=== PATIENT | female | born 1970 | race Caucasian/White ===

== ENCOUNTER 2016-05-14 18:19 | Emergency (ER) | payer MEDICAID ==
[2016-05-14] MEDS ORDERED: LORazepam 2 MG/ML INJ IVP ONE (18:30)
--- NOTE | 2016-05-14 18:39 | EDPHY ---
H & P HPI/ROS: HPI CHIEF COMPLAINT: Anxiety, panic attack HISTORY OF PRESENT ILLNESS: This patient very pleasant 45-year-old female she does have significant past medical history for CHF, COPD wears intermittent oxygen, anxiety, presents emergency room by EMS after she was discharged from [facility] in [place] this morning she waited 3 hours for medicate taxi cab medicated taxi cab took her to the homeless [facility] here in [place]. When she arrived at the homeless penitentiary they unfortunately said they were full and could not take her in. She tells me she had acute onset of panic attack called 911 for acute anxiety and presents to the emergency room. the patient denies chest pain. She tells me she got very anxious and upset after she was turned away from the homeless penitentiary called 911 and that is why she arrived here. She is declining any evaluation for cardiac evaluation or chest pain. She is agreeable for IV Ativan for anxiety an EKG due to tachycardia. She does not want any blood work or x-ray done. Past Medical History: COPD, on intermittent oxygen, CHF, inappropriate tachycardia takes metoprolol Past Surgical History: Mitral valve replacement Social History: daily tobacco use, denies illicit drugs or alcohol, homeless Family History: noncontributory ROS REVIEW OF SYSTEMS: A comprehensive 10 point review of systems is otherwise negative aside from elements mentioned in the history of present illness. Exam Constitutional appears well nontoxic, anxious, triage nursing summary reviewed , vital signs reviewed, awake/alert. Eyes normal conjunctivae and sclera, EOMI, PERRLA. HENT normal inspection, atraumatic, moist mucus membranes, no epistaxis, neck supple/ no meningismus, no raccoon eyes. Respiratory clear to auscultation bilaterally, normal breath sounds, no respiratory distress, no wheezing. Cardiovascular tachycardic , regular rhythm, no murmur, no edema, distal pulses normal. Gastrointestinal soft, non-tender, no rebound, no guarding, normal bowel sounds, no distension, no pulsatile mass. Genitourinary no CVA tenderness. Musculoskeletal no midline vertebral tenderness, full range of motion, no calf swelling, no tenderness of extremities, no meningismus, good pulses, neurovascularly intact. Skin pink, warm, & dry, no rash, skin atraumatic. Neurologic awake, alert and oriented x 3, AAOx3, moves all 4 extremities equally, motor intact, sensory intact, CN II-XII intact, normal cerebellar, normal vision, normal speech. Psychiatric anxious Heme/Lymph/Immune no lymphadenopathy. Differential Diagnosis: includes but is not limited to in a particular order acute anxiety, panic attack, inappropriate tachycardia Medical Decision Making: Patient had an IV established, patient be given IV Ativan for acute anxiety will obtain EKG due to tachycardia however patient has declined any further workup. She would like something to eat. She would like case management to be with her about resources for where she can go tonight. Re-evaluation: EKG interpretation by me on record in [facility] system. Impression time of EKG 1827: Sinus tachycardia rate of 117 left atrial abnormality, LVH present, otherwise I do not appreciate acute ischemic changes specifically no ST elevation, ST depression or significant abnormal T-wave abnormality. 1923: Re-evaluation this time this patient is resting comfortably case management with her she would like a cab voucher to go to the local [facility]. She did receive IV Ativan here and feels much better. Heart rate did come down from the 130s to 109. This is where she tells me she normally runs. She is comfortable with discharge. Source: Patient, EMS Constitutional: Initial Vital Signs Temperature (C) 36.9 C 05/14/16 19:00 Heart Rate 130 H 05/14/16 19:00 Respiratory Rate 16 05/14/16 19:00 Blood Pressure 116/92 H 05/14/16 19:00 O2 Sat (%) 92 05/14/16 19:00 O2 Delivery Mode Room Air Medical Decision Making - Data Points Medications Given: Discontinued Medications Lorazepam (Ativan Injection) 1 mg IVP EDNOW ONE Stop: 05/14/16 18:31 Last Admin: 05/14/16 18:49 Dose: 1 mg Departure - Departure Disposition: Home, Routine, Self-Care Clinical Impression: Acute anxiety Condition: Good Instructions: Anxiety (ED) Additional Instructions: 1. stay well-hydrated drink lots of fluids 2. return to the emergency room if he develops any worsening symptoms questions or concerns.
--- NOTE | 2016-05-14 18:40 | CPEKG ---
Heart Rate: 117 RR Interval: 513 P-R Interval: 148 QRSD Interval: 86 QT Interval: 328 QTC Interval: 458 P [place]: 58 QRS [place]: 13 T Wave [place]: 106 EKG Severity - ABNORMAL ECG - EKG Impression: SINUS TACHYCARDIA EKG Impression: PROBABLE LEFT ATRIAL ABNORMALITY EKG Impression: LEFT VENTRICULAR HYPERTROPHY Electronically Signed By: Edis Rodriguez 15-May-2016 22:48:59
[2016-05-14 19:13] VITALS: TEMP 98.4
[2016-05-14] MEDS ORDERED: ACETAMINOPHEN 500 MG TAB ONE (19:42)
[2016-05-14] MEDS ORDERED: ACETAMINOPHEN 500 MG TAB PO ONE (19:45)
[2016-05-14 19:53] VITALS: BP 105/79; PULSE 120; RESP 20; O2SAT 95
== END 2016-05-14 19:49 | disposition home or self-care (01) ==
DX: F41.9 Anxiety disorder, unspecified (principal); I50.9 Heart failure, unspecified
CPT/HCPCS: 96374

== ENCOUNTER 2016-05-15 21:07 | Emergency (ER) | payer MEDICAID ==
--- NOTE | 2016-05-15 21:18 | CPEKG ---
Heart Rate: 93 RR Interval: 645 P-R Interval: 128 QRSD Interval: 88 QT Interval: 372 QTC Interval: 463 P [place]: 30 QRS [place]: 37 T Wave [place]: 96 EKG Severity - ABNORMAL ECG - EKG Impression: SINUS RHYTHM EKG Impression: PROBABLE LVH WITH SECONDARY REPOL ABNRM Electronically Signed By: Edis Rodriguez 15-May-2016 22:48:59
[2016-05-15 21:50] LABS: FRAGMENT RBC FLAG 40 (0-99); HEMATOCRIT 37.6 % (38.0-47.0); HEMOGLOBIN 11.5 g/dL (12.6-16.3); LEFT SHIFT FLG 0 (0-99); LIPEMIA HEMOLYSIS FLAG 80 (0-99); MEAN CELL HEMOGLOBIN 24.8 pg (27.9-34.1); MEAN CELL HEMOGLOBIN CONCENTR. 30.6 g/dL (32.4-36.7); MEAN PLATELET VOLUME 11.1 fL (8.7-11.7); PLATELET CLUMPS FLAG 0 (0-99); PLATELET COUNT 225 10^3/uL (150-400); RED BLOOD CELL COUNT 4.64 10^6/uL (4.18-5.33)
[2016-05-15 21:51] LABS: ADD DIFF? YES; ADD MORPH? NO; ADD SCAN? NO; ANION GAP 12 mEq/L (8-16); ATYPICAL LYMPHOCYTE FLAG 110 (0-99); CALCIUM 8.7 mg/dL (8.5-10.4); CARBON DIOXIDE 25 mEq/l (22-31); CHLORIDE 104 mEq/L (97-110); GLOMERULAR FILTRATION RATE 60; GLUCOSE 102 mg/dL (70-100); RED CELL DISTRIBUTION WIDTH 21.6 % (11.5-15.2); SODIUM 141 mEq/L (134-144)
[2016-05-15 22:00] LABS: TROPONIN I 0.032 ng/mL (0-0.034)
--- NOTE | 2016-05-15 22:12 | EDPHY ---
H & P Stated Complaint: CP-pt recent visit here and at [facility] - Personal History LMP (Females 10-55): Post Menopausal Current Tetanus Diphtheria and Acellular Pertussis (TDAP): Yes Tetanus Vaccine Date: 2014 - Medical/Surgical History Hx Asthma: No Hx Chronic Respiratory Disease: Yes Hx Diabetes: No Hx Cardiac Disease: Yes Hx Renal Disease: No Hx Cirrhosis: No Hx Alcoholism: No Hx HIV/AIDS: No Hx Splenectomy or Spleen Trauma: No Other PMH: COPD, CHF, TBI, mitral valve replacement - Social History Smoking Status: Current every day smoker HPI/ROS: Chief complaint: Chest pain History of present illness: This is a 45-year-old female who presents to the emergency department with EMS for evaluation and treatment of chest pain. Patient reports the onset of symptoms earlier this evening. She describes pain throughout the chest. She denies precipitating factors. She denies alleviating factors. She was seen last night for similar, however she refused an evaluation and wanted only be treated for anxiety. She states the day before she had been released from [facility] where she was admitted for a number of weeks for evaluation of her heart. She states she has been told she needs to have her heart valves replaced. She reports she was discharged from the [place] and asked to go to [place] as she "would get better care there". Review of systems: A 10 point review of systems was obtained and other than described above was negative (Ernesto Marquez) - Physical Exam Exam: General Appearance: Alert, nontoxic. Eyes: Pupils equal and round no pallor or injection. ENT, Mouth: Mucous membranes moist. Respiratory: There are no retractions, lungs are clear to auscultation. Cardiovascular: Regular rate and rhythm. Gastrointestinal: Abdomen is soft and nontender, no masses, bowel sounds normal. Neurological: Alert and oriented. Strength and sensation intact and symmetrical. Skin: Warm and dry, no rashes. Musculoskeletal: Neck is supple nontender. Extremities are symmetrical, full range of motion. Psychiatric: Patient is oriented X 3, there is no agitation. (Ernesto Marquez) Constitutional: Initial Vital Signs Temperature (C) 36.6 C 05/15/16 21:19 Heart Rate 66 05/15/16 21:19 Respiratory Rate 16 05/15/16 21:19 Blood Pressure 132/74 H 05/15/16 21:19 O2 Sat (%) 96 05/15/16 21:19 O2 Delivery Mode Room Air O2 (L/minute) 2 Allergies/Adverse Reactions: benzonatate [From Tessalon Perles] Allergy (Verified 05/15/16 21:21) levofloxacin [From Levaquin] Allergy (Verified 05/15/16 21:21) sea foods Allergy (Uncoded 05/15/16 21:21) Home Medications: Medication Instructions Recorded Aspirin EC 81 mg (*) 05/15/16 Atorvastatin Calcium 05/15/16 Carvedilol 05/15/16 Furosemide 05/15/16 Lisinopril 05/15/16 Metoprolol Succinate 05/15/16 Proair Hfa Icu (*) 05/15/16 Spironolactone 05/15/16 Medical Decision Making - Diagnostics EKG Interpretation: 12-lead EKG interpreted by me; official reading is in trace master. My interpretation is sinus rhythm rate 93, nonspecific T-wave flattening and LVH, unchanged from yesterday's. (Patricio Dorsey) ED Course/Re-evaluation: Medical records were obtained from [facility]. It appears she was admitted on May 07, 2016 and discharged on May 08, 2016. Her diagnosis at discharge included right great toe wound, rheumatic heart disease status post AVR/MVR replacement, polysubstance abuse, homelessness, chronic back pain secondary to severe spinal stenosis, COPD and anxiety. Patient seen under the supervision of my secondary supervising physician Dr. Patricio Dorsey. Patient presents to the emergency department for evaluation of chest pain. She was seen here last night. She was admitted to the [facility] earlier this month for similar. Blood studies, chest x-ray and EKG largely unremarkable. Repeat troponin is obtained and trending down. Patient will be discharged home. She is referred to a primary care doctor for further evaluation and care. A note has been sent to case management as patient will need a primary care doctor to follow her on a regular basis. (Ernesto Marquez) Other Provider: PHYSICIAN DOCUMENTATION: The patient was evaluated and managed by the Physician [employer] Marker and myself. I have reviewed the chart and agree with the findings and plan of care as documented. In addition, I examined the patient myself at 2216. Patient tells me she was discharged from [facility] on the of this month and records have been requested History confirmed as chest tightness and pain in the whole left side of the chest which does not radiate has no associated symptoms and is not better worse with respiration or exertion. Physical findings as follows: Alert, anxious, breath sounds equal, no rales. Records from [facility] faxed to us, discharge summary 05/08/2016 reviewed by myself. Diagnoses including anxiety, asthma, cervical cancer, COPD, heart failure with reduced ejection fraction of 19% on April 2016. Rheumatic heart disease, partial hysterectomy, tubal ligation, mitral and aortic valve replacement. There is specifically no mention that she needs valve replacement. She was not thought to have ischemic heart disease. Not hypoxic, symptoms unlikely PE or dissection. No pneumonia or pneumothorax or definite CHF on xray. The plan 2nd troponin with discharge if stable or trending down. ACS considered but thought unlikely. I am the secondary supervising physician. (Patricio Dorsey) - Data Points Laboratory Results: Laboratory Results 05/15/16 21:21 05/15/16 21:21 05/15/16 05/15/16 05/15/16 23:20 21:21 21:21 WBC 7.89 10^3/uL 10^3/uL (3.80-9.50) RBC 4.64 10^6/uL 10^6/uL (4.18-5.33) Hgb 11.5 g/dL L g/dL (12.6-16.3) Hct 37.6 % L % (38.0-47.0) MCV 81.0 fL L fL (81.5-99.8) MCH 24.8 pg L pg (27.9-34.1) MCHC 30.6 g/dL L g/dL (32.4-36.7) RDW 21.6 % H % (11.5-15.2) Plt Count 225 10^3/uL 10^3/uL (150-400) MPV 11.1 fL fL (8.7-11.7) Neut % (Auto) Not Reported Lymph % (Auto) Not Reported [place] % (Auto) Not Reported Eos % (Auto) Not Reported Baso % (Auto) Not Reported Nucleat RBC Rel Count 0.0 % % (0.0-0.2) Absolute Neuts (auto) Not Reported Absolute Lymphs (auto) Not Reported Absolute Monos (auto) Not Reported Absolute Eos (auto) Not Reported Absolute Basos (auto) Not Reported Absolute Nucleated RBC 0.00 10^3/uL 10^3/uL (0-0.01) Immature Gran % Not Reported Seg Neutrophils % 54 % % Band Neutrophils % 5 % % Lymphocytes % 23 % % Monocytes % 14 % % Eosinophils % 2 % % Basophils % 2 % % Immature Gran # Not Reported Absolute Seg Neuts 4.26 10^/uL 10^/uL (1.70-6.50) Absolute Band Neuts 0.39 10^3/uL 10^3/uL (0.00-0.70) Absolute Lymphocytes 1.81 10^3/uL 10^3/uL (1.00-3.00) Absolute Monocytes 1.10 10^3/uL H 10^3/uL (0.30-0.80) Absolute Eosinophils 0.16 10^3/uL 10^3/uL (0.03-0.40) Absolute Basophils 0.16 10^3/uL H 10^3/uL (0.02-0.10) Atypical Lymphocytes 1+ H Platelet Estimate ADEQUATE (ADEQ) Large Platelets PRESENT H Polychromasia 1+ H Hypochromasia 1+ H Oval Macrocytes 1+ H Sodium 141 mEq/L mEq/L (134-144) Potassium 4.0 mEq/L mEq/L (3.5-5.2) Chloride 104 mEq/L mEq/L (97-110) Carbon Dioxide 25 mEq/l mEq/l (22-31) Anion Gap 12 mEq/L mEq/L (8-16) BUN 26 mg/dL H mg/dL (7-23) Creatinine 1.0 mg/dL mg/dL (0.6-1.0) Estimated GFR 60 Glucose 102 mg/dL H mg/dL (70-100) Calcium 8.7 mg/dL mg/dL (8.5-10.4) Troponin I 0.028 ng/mL ng/mL 0.032 ng/mL ng/mL (0-0.034) (0-0.034) Departure - Departure Disposition: Home, Routine, Self-Care Clinical Impression: Chest pain Qualifiers: Chest pain type: unspecified Qualified Code(s): R07.9 - Chest pain, unspecified Condition: Good Instructions: Chest Pain (ED) Additional Instructions: Follow-up with a primary care doctor for continued evaluation and care If symptoms worsen or new symptoms develop return to the emergency department for recheck Referrals: Patient,NotPresent [Unknown] - As per Instructions [facility],. [Clinic] - As per Instructions
[2016-05-15 22:21] LABS: HYPOCHROMIA 1+; LARGE PLATELETS PRESENT; MACROCYTES 1+; PLATELET ESTIMATE ADEQUATE (ADEQ); POLYCHROMASIA 1+
[2016-05-16 00:30] VITALS: BP 100/77; PULSE 89; RESP 20; TEMP 98.2; O2SAT 93
== END 2016-05-16 00:30 | disposition home or self-care (01) ==
LOC: EDUNIT#
DX: R07.9 Chest pain, unspecified (principal); J44.9 Chronic obstructive pulmonary disease, unspecified; I50.9 Heart failure, unspecified; F17.200 Nicotine dependence, unspecified, uncomplicated; Z79.82 Long term (current) use of aspirin

== ENCOUNTER 2016-05-18 10:26 | Emergency (ER) | payer MEDICAID ==
[2016-05-18] MEDS ORDERED: IPRATROPIUM/ALBUTEROL 3 ML DEYVIAL IH ONE (10:49)
--- NOTE | 2016-05-18 11:29 | EDPHY ---
H & P Time Seen by Provider: 05/18/16 11:24 HPI/ROS: Chief complaint. Shortness of breath HPI. URI symptoms runny nose cough congestion for 3-4 days. Seen in our emergency department May 14 as well as May 15. Chest x-ray couple days ago was consistent with congestive heart failure. The patient does not have chest pain or fever. She does have some slight shortness of breath specially with exertion ROS Constitutional. no fever/chills, no weakness Eyes. no problems with vision ENT. no sore throat, no nasal drainage Cardiovascular. no chest pain Respiratory. Exertional shortness of breath Abdominal. no abdominal pain, no nausea/vomiting, no diarrhea . no problems urinating MS. no calf pain/swelling, no neck/back pain, no joint pain Skin. no rash Lymph. no swollen glands Neuro. no headache, no dizziness, no difficulty walking or with speech Past Medical/Surgical History: Past medical history is significant COPD, CHF, TBI, mitral valve replacement Social History: Single daily smoker no alcohol Smoking Status: Current every day smoker Physical Exam: General Appearance: Alert well-developed female mild distress vitals are stable Eyes: Pupils equal and round no pallor or injection. ENT, pharynx without injection. Tympanic membranes normal Respiratory: There are no retractions, lungs are clear to auscultation. Cardiovascular: Regular rate and rhythm. Gastrointestinal: Abdomen is soft and nontender, no masses, bowel sounds normal. Neurological: Awake and alert, sensory and motor exams grossly normal. Skin: Warm and dry, no rashes. Musculoskeletal: Neck is supple nontender. Extremities symmetrical, full range of motion. Psychiatric: Patient is oriented X 3, there is no agitation. Constitutional: Initial Vital Signs Temperature (C) 36.6 C 05/18/16 10:26 Heart Rate 113 H 05/18/16 10:26 Respiratory Rate 20 05/18/16 10:26 Blood Pressure 129/81 H 05/18/16 10:26 O2 Sat (%) 96 05/18/16 10:26 O2 Delivery Mode Room Air O2 (L/minute) 2 Allergies/Adverse Reactions: benzonatate [From Tessalon Perles] Allergy (Verified 05/15/16 21:21) levofloxacin [From Levaquin] Allergy (Verified 05/15/16 21:21) sea foods Allergy (Uncoded 05/15/16 21:21) Home Medications: Medication Instructions Recorded Aspirin EC 81 mg (*) 05/15/16 Atorvastatin Calcium 05/15/16 Carvedilol 05/15/16 Furosemide 05/15/16 Lisinopril 05/15/16 Metoprolol Succinate 05/15/16 Proair Hfa Icu (*) 05/15/16 Spironolactone 05/15/16 Medical Decision Making - Diagnostics EKG Interpretation: EKG interpreted by me shows sinus tachycardia normal interval and axis no significant ST elevation or depression. The rate 111 Imaging: Chest x-ray interpreted by me consistent with mild CHF. No evidence for pneumonia Procedures: IV normal saline, monitor Lasix by mouth ED Course/Re-evaluation: Re-evaluation 1:00 p.m.. Patient remains tachycardic at about 108 and O2 saturation 88-89% on room air. Patient and I discussed imaging lab results, treatment plan, importance of follow-up further evaluation. She expresses understanding and agreement I consulted and discussed case Dr. Barnes, hospitalist, who agrees to the admission Differential Diagnosis: I have considered pneumonia, acute coronary syndrome, congestive heart failure, influenza Patient seems to have an upper respiratory infection but I think that she also has CHF and exacerbating her COPD - Data Points Laboratory Results: Laboratory Results 05/18/16 10:40 05/18/16 10:40 05/18/16 05/18/16 05/18/16 10:40 10:40 10:35 WBC 7.88 10^3/uL 10^3/uL (3.80-9.50) RBC 4.65 10^6/uL 10^6/uL (4.18-5.33) Hgb 11.7 g/dL L g/dL (12.6-16.3) Hct 38.0 % % (38.0-47.0) MCV 81.7 fL fL (81.5-99.8) MCH 25.2 pg L pg (27.9-34.1) MCHC 30.8 g/dL L g/dL (32.4-36.7) RDW 22.0 % H % (11.5-15.2) Plt Count 196 10^3/uL 10^3/uL (150-400) MPV 10.6 fL fL (8.7-11.7) Neut % (Auto) 82.1 % H % (39.3-74.2) Lymph % (Auto) 6.0 % L % (15.0-45.0) [place] % (Auto) 9.4 % % (4.5-13.0) Eos % (Auto) 1.6 % % (0.6-7.6) Baso % (Auto) 0.5 % % (0.3-1.7) Nucleat RBC Rel Count 0.0 % % (0.0-0.2) Absolute Neuts (auto) 6.47 10^3/uL 10^3/uL (1.70-6.50) Absolute Lymphs (auto) 0.47 10^3/uL L 10^3/uL (1.00-3.00) Absolute Monos (auto) 0.74 10^3/uL 10^3/uL (0.30-0.80) Absolute Eos (auto) 0.13 10^3/uL 10^3/uL (0.03-0.40) Absolute Basos (auto) 0.04 10^3/uL 10^3/uL (0.02-0.10) Absolute Nucleated RBC 0.00 10^3/uL 10^3/uL (0-0.01) Immature Gran % 0.4 % % (0.0-1.1) Immature Gran # 0.03 10^3/uL 10^3/uL (0.00-0.10) Platelet Estimate ADEQUATE (ADEQ) Polychromasia 1+ H Hypochromasia 1+ H Elliptocytes 1+ H Sodium 137 mEq/L mEq/L (134-144) Potassium 3.5 mEq/L mEq/L (3.5-5.2) Chloride 102 mEq/L mEq/L (97-110) Carbon Dioxide 27 mEq/l mEq/l (22-31) Anion Gap 8 mEq/L mEq/L (8-16) BUN 15 mg/dL mg/dL (7-23) Creatinine 0.6 mg/dL mg/dL (0.6-1.0) Estimated GFR > 60 Glucose 113 mg/dL H mg/dL (70-100) Calcium 9.1 mg/dL mg/dL (8.5-10.4) Troponin I < 0.012 ng/mL ng/mL (0-0.034) NT-Pro-B Natriuret Pep 5500 pg/mL H pg/mL (0-125) Influenza A & B (PCR) NEGATIVE FOR FLU (NEGATIVE) Medications Given: Discontinued Medications Acetaminophen/Hydrocodone Bitart ([place] 5/325mg Prepack#6) 1 btl TAKEHOME EDNOW ONE Stop: 05/18/16 12:14 Last Admin: 05/18/16 12:59 Dose: 1 btl Acetaminophen/Hydrocodone Bitart ([place] 5/325) 1 tab PO EDNOW ONE Stop: 05/18/16 12:19 Last Admin: 05/18/16 12:22 Dose: 1 tab Albuterol (Proventil Neb) 3 ml IH EDNOW ONE Stop: 05/18/16 11:33 Last Admin: 05/18/16 11:36 Dose: 3 ml Albuterol/Ipratropium (Duoneb) 3 ml IH EDNOW ONE Stop: 05/18/16 10:50 Last Admin: 05/18/16 10:53 Dose: 3 ml Methylprednisolone Sodium Succinate (Solu-Medrol) 125 mg IVP EDNOW ONE Stop: 05/18/16 11:33 Last Admin: 05/18/16 11:36 Dose: 125 mg Departure - Departure Disposition: [facility] Acute Clinical Impression: Chronic obstructive pulmonary disease with acute exacerbation Acute exacerbation of congestive heart failure Qualifiers: Congestive heart failure type: combined Qualified Code(s): I50.43 - Acute on chronic combined systolic (congestive) and diastolic (congestive) heart failure Condition: Fair Referrals: NONE *PRIMARY CARE P,. [Primary Care Provider] - As per Instructions
[2016-05-18] MEDS ORDERED: methylPREDNISolone SOD SUCC 125 MG/2 ML VIAL IVP ONE (11:32)
[2016-05-18] MEDS ORDERED: ALBUTEROL 3 ML DEYVIAL IH ONE (11:32)
[2016-05-18 11:38] LABS: % IMMATURE GRANULYOCYTES 0.4 % (0.0-1.1); ABSOLUTE IMMATURE GRANULOCYTES 0.03 10^3/uL (0.00-0.10); ADD DIFF? NO; ADD MORPH? YES; ADD SCAN? NO; ATYPICAL LYMPHOCYTE FLAG 20 (0-99); FRAGMENT RBC FLAG 40 (0-99); HEMOGLOBIN 11.7 g/dL (12.6-16.3); LEFT SHIFT FLG 0 (0-99); LIPEMIA HEMOLYSIS FLAG 80 (0-99); MEAN CELL HEMOGLOBIN 25.2 pg (27.9-34.1); MEAN CELL HEMOGLOBIN CONCENTR. 30.8 g/dL (32.4-36.7); MEAN CELL VOLUME 81.7 fL (81.5-99.8); MEAN PLATELET VOLUME 10.6 fL (8.7-11.7); PLATELET CLUMPS FLAG 0 (0-99); PLATELET COUNT 196 10^3/uL (150-400); RED BLOOD CELL COUNT 4.65 10^6/uL (4.18-5.33)
[2016-05-18 11:43] LABS: ANION GAP 8 mEq/L (8-16); CALCIUM 9.1 mg/dL (8.5-10.4); CARBON DIOXIDE 27 mEq/l (22-31); CHLORIDE 102 mEq/L (97-110); CREATININE 0.6 mg/dL (0.6-1.0); GLOMERULAR FILTRATION RATE > 60; GLUCOSE 113 mg/dL (70-100); POTASSIUM 3.5 mEq/L (3.5-5.2); SODIUM 137 mEq/L (134-144)
[2016-05-18 11:56] LABS: TROPONIN I < 0.012 ng/mL (0-0.034)
[2016-05-18 12:05] LABS: ELLIPTOCYTES 1+; HYPOCHROMIA 1+; PLATELET ESTIMATE ADEQUATE (ADEQ); POLYCHROMASIA 1+
--- NOTE | 2016-05-18 12:10 | CPEKG ---
Heart Rate: 111 RR Interval: 541 P-R Interval: 152 QRSD Interval: 88 QT Interval: 332 QTC Interval: 451 P [place]: 72 QRS [place]: 26 T Wave [place]: 75 EKG Severity - BORDERLINE ECG - EKG Impression: SINUS TACHYCARDIA EKG Impression: PROBABLE LEFT ATRIAL ABNORMALITY Electronically Signed By: Madi Hale 18-May-2016 13:45:28
[2016-05-18] MEDS ORDERED: GUAIFENESIN/DM 10 ML UDCUP PO PRN (12:11)
[2016-05-18] MEDS ORDERED: HYDROCOD/APAP 5/325 PREPACK#6 BTL TAKEHOME ONE ×2 (12:13→15:09)
[2016-05-18] MEDS ORDERED: HYDROCODONE/APAP 5/325 TAB PO ONE (12:18)
[2016-05-18] MEDS ORDERED: FUROSEMIDE 40 MG TAB PO ONE (13:12)
[2016-05-18 15:19] VITALS: BP 123/75; PULSE 112; RESP 16; TEMP 98.8; O2SAT 96
--- NOTE | 2016-05-18 19:17 | GCON ---
[f rep st] CONSULTATION DATE OF CONSULTATION: 05/18/2016 REASON FOR CONSULTATION: Medical evaluation. HISTORY OF PRESENT ILLNESS: Ms. Person is a 45-year-old female, who normally resides in [place]. S he presented to the emergency room with complaints of congestion with runny nose and cough for the l ast 3-4 days. She has been seen and evaluated in the emergency room on 2 separate occasions and dis charged from the emergency room. She denies any nausea, vomiting or diarrhea. She denies any fever s, sweats or night chills. She denies any chest pain, dyspnea or headache. She does say she has so me slight shortness of breath with exertion, but otherwise denies any significant shortness of breat h. History is obtained from the patient as well as her medical record. PAST MEDICAL HISTORY: Notable for congestive heart failure, COPD, potential traumatic brain injury, mitral valve replacement, polysubstance abuse, homeless, chronic back pain, anxiety. PAST SURGICAL HISTORY: Tubal ligation, mitral and aortic valve replacement. REVIEW OF SYSTEMS: Comprehensive 10-point review of systems is negative other than noted in the HPI . SOCIAL HISTORY: Ms. Person is a homeless 45-year-old female, who smokes tobacco on a daily basis a nd drinks occasional alcohol. She normally resides in [place]; however, approximately 1 week ago, [facility] provided a taxi voucher to [place]. She wishes to return to [place]. She is unable to get a shelt er bed here and is unable to care for herself in [place] as she has no resources. PHYSICAL EXAM: GENERAL: The patient is alert, well developed. HEENT: Pupils equal, round, reacti ve to light. NECK: Supple. CARDIOVASCULAR: Tachycardia with a regular rhythm. GASTROINTESTINAL/ ABDOMEN: Bowel sounds are positive, soft and nontender. There is no guarding or rigidity noted. N EUROLOGICAL: The patient is alert and oriented. She has 5/5 strength in all 4 extremities. She is focally intact. SKIN: Warm and dry without rashes or lesions. VITAL SIGNS: Afebrile at 37.1, pu lse is 112, respiratory rate 16, blood pressure is 123/75. She is saturating 96% on room air. ALLERGIES: 1. Tessalon Perles. 2. Levaquin. 3. Seafood. HOME MEDICATIONS: Unclear at this time; however, there is evidence that the patient takes aspirin 8 1 mg daily, Lopressor, lisinopril, Lasix, Coreg, albuterol inhaler, spironolactone. She is unable t o provide me with medication dosages and information. She tells me she has not taken her medication s for the last 24 hours as they are at the [facility] and she is unable to get them. STUDIES AND PROCEDURES DONE: EKG notes sinus tachycardia with a rate of 111. Chest x-ray notes sta ble cardiomegaly with some peribronchiolar thickening. Laboratory evaluation: CBC and metabolic pa milan are benign. BNP is noted to be 5500. ASSESSMENT AND PLAN: Ms. Person is a 45-year-old female, who normally resides in [place] and is ofe eless. She presented to [place] approximately 1 week ago, and is now presenting to the emergency ro om with complaints of cough and runny nose. During my assessment of the patient, she is hemodynamic ally stable. Her vital signs are within normal limits. She is not requiring supplemental oxygen. She is not complaining of chest pain or shortness of breath. I have reviewed the plan of care with the patient. She wishes to return to [place] where she normally resides and can get medical care by her normal providers. Her medications are at the [facility]. I have discussed with the skilled nursing case manager a ttempting to get her medications and the rest of her belongings from the [facility]. The skilled nursing case manager is working on it. I feel the patient is mildly tachycardic secondary to the fact that she has not h ad her beta-felicitas medication, and this will be re-initiated once she is able to receive her medica tions. She did receive a dose of oral Lasix during her visit in the emergency room. She has been o ffered hospitalization here, but wishes to return to [place] where she normally resides. A taxi will be arranged for her to be transported to [place] per her wishes. She has been instructed to return to the emergency room if her symptoms worsen, if she develops any chest pain, shortness of breath or other significant medical complications. She states that she is understanding of this and in agree ment with this plan. /[id number]/MODL
== END 2016-05-18 15:18 | disposition home or self-care (01) ==
LOC: EDUNIT# → UNDOADMOB 13:12
DX: I50.43 Acute on chronic combined systolic (congestive) and diastolic (congestive) heart failure (principal); J44.1 Chronic obstructive pulmonary disease with (acute) exacerbation; F17.200 Nicotine dependence, unspecified, uncomplicated; Z79.82 Long term (current) use of aspirin
CPT/HCPCS: 96374